=== PATIENT | female | born 1965 | race African-American/Black ===

== ENCOUNTER 2018-12-20 06:51 | Outpatient (CLI) | payer BC ==
[2018-12-20 14:36] LABS: Hemoglobin 11.6 g/dL (12.0-16.0); Mean Corpuscular HGB CONC 31.1 g/dL (32.0-36.0); Mean Corpuscular Volume 80.3 fL (78.0-98.0); Platelet Count 224 thou/uL (130-400); RBC Distribution Width 16.5 % (11.5-14.5); Red Blood Cell (RBC) Count 4.62 mill/uL (4.20-5.40); White Blood Cell (WBC) Count 9.2 thou/uL (4.8-10.8)
[2018-12-20 14:56] LABS: Anion Gap 14 mmol/L (10-20); BUN (Urea Nitrogen) 15 mg/dL (9.8-20.1); Calc. Creatinine Clearance 0 mL/min (70-130); Calcium 9.3 mg/dL (7.8-10.44); Carbon Dioxide 28 mmol/L (22-29); Chloride 105 mmol/L (98-107); Estimated GFR-MDRD 87; Glucose 86 mg/dL (70-105); Potassium 3.5 mmol/L (3.5-5.1); Sodium 143 mmol/L (136-145)
--- NOTE | 2018-12-24 16:13 | EKG ---
Test Reason : Blood Pressure : / mmHG Vent. Rate : 065 BPM Atrial Rate : 065 BPM P-R Int : 138 ms QRS Dur : 088 ms QT Int : 408 ms P-R-T Axes : 046 050 007 degrees QTc Int : 424 ms Normal sinus rhythm Normal ECG When compared with ECG of 12-SEP-2018 23:55, Nonspecific T wave abnormality no longer evident in Anterolateral leads Confirmed by DR. Maranda FRANCE ([id number]) on 12/24/2018 4:12:30 PM Referred By: DAMON Confirmed By:DR. Maranda FRANCE
== END 2018-12-20 06:52 | disposition home or self-care (01) ==
LOC: LABBT 06:51
PROVIDERS: ATTEND Neurological Surgery
DX: Z01.818 Encounter for other preprocedural examination (principal); M54.12 Radiculopathy, cervical region
CPT/HCPCS: 80048; 85027; 93005; 93010

== ENCOUNTER 2018-12-25 06:04 | Day surgery (SDC) | payer BC ==
[2018-12-20 13:23] VITALS: BMI 38.9
[2018-12-25] MEDS ORDERED: Sodium Chloride 0.9% 10 ML ONE (06:50)
[2018-12-25] MEDS ORDERED: Clindamycin/D5W 900 mg/50 ml Premix Bag ONE (06:57)
[2018-12-25] MEDS ORDERED: Levofloxacin 500 mg/D5W 100 ml Premix Bag ONE (06:57)
[2018-12-25] MEDS ORDERED: Fentanyl 100 MCG/2 ML VIAL ONE ×2 (07:57→09:39)
[2018-12-25] MEDS ORDERED: SUGAMMADEX SODIUM 500 MG/5 ML VIAL ONE (09:00)
[2018-12-25] MEDS ORDERED: Promethazine HCl 25 MG/ML VIAL ONE (09:41)
--- NOTE | 2018-12-25 10:01 | OP ---
DATE OF PROCEDURE: 12/25/2018 HAND IRONER: Mathew Chamorro PA-C PROCEDURES PERFORMED: Anterior cervical diskectomy C6-C7, interbody arthrodesis, intervertebral biomechanical device, local morselized autograft, demineralized bone matrix, and anterior titanium instrumentation C6-C7. DESCRIPTION OF PROCEDURE: The patient was brought to the operating room and intubated. She was positioned supine with head in modest extension on gel-filled donut. A longitudinal incision was made in the right precervical area and dissected medial to the sternocleidomastoid muscle, identified the anterior cervical spinal, and the level was confirmed by x-ray. We placed distraction across the disk space and using the operative microscope and microdissection techniques, completely removed the C6-C7 disk decompressing the neural elements from foramen to foramen. Bony endplates were then decorticated for the purpose of arthrodesis and appropriate-sized intervertebral biomechanical PEEK device was brought into the field, filled with demineralized bone matrix and local morselized autograft, and tapped in place securely at C6-C7. Next, an anterior plate was brought into the field and secured to C6 and C7 using two 14 mm screws at each level. The wound was extensively irrigated. MAC hemostasis was secured and the wound was closed in anatomic layers. Job ID: [id number]
[2018-12-25] MEDS ORDERED: Rocuronium Bromide 10 MG/ML (10ML VIAL) ONE (10:45)
[2018-12-25] MEDS ORDERED: Dexamethasone 20 MG/5 ML VIAL ONE (10:45)
[2018-12-25] MEDS ORDERED: Ondansetron PF 4 MG/2 ML Vial ONE (10:45)
[2018-12-25] MEDS ORDERED: PHENYLEPHRINE-NS 100 MCG/ML 10 ML SYRINGE ONE (10:45)
[2018-12-25] MEDS ORDERED: Lidocaine 1% PF 5 ML VIAL ONE (10:45)
[2018-12-25] MEDS ORDERED: PROPOFOL 200 MG/20 ML VIAL ONE (10:45)
[2018-12-25] MEDS ORDERED: HYDROcodone/Acetaminophen 5/325 mg Tablet ONE (11:52)
== END 2018-12-25 15:20 | disposition home or self-care (01) ==
LOC: SDC 06:04
PROVIDERS: ATTEND Neurological Surgery
PROC: 0RG10A0 Fusion of Cervical Vertebral Joint with Interbody Fusion Device, Anterior Approach, Anterior Column, Open Approach (ICD-10-PCS; principal; 2018-12-25)
PROC: 0RT30ZZ Resection of Cervical Vertebral Disc, Open Approach (ICD-10-PCS; principal; 2018-12-25)
DX: M54.12 Radiculopathy, cervical region (principal); F41.9 Anxiety disorder, unspecified; M19.90 Unspecified osteoarthritis, unspecified site; Z79.899 Other long term (current) drug therapy; Z88.0 Allergy status to penicillin
CPT/HCPCS: 76000; C1713; C1776; J0131; J1100; J1956; J2001; J2405; J2550; J2704; J3010; J3490

== ENCOUNTER 2019-01-11 15:45 | Outpatient (CLI) | payer BC ==
--- NOTE | 2019-01-11 16:19 | RAD ---
EXAM: CERVICAL SPINE THREE VIEWS: 01/11/19 HISTORY: Cervical radiculopathy, follow-up surgery. FINDINGS: Anterior cervical fusion changes at C6-C7. No significant prevertebral soft tissue swelling. The tip of the odontoid and upper C1 are partially obscured on the AP open mouth view. IMPRESSION: Anterior cervical fusion changes at C6-C7. POS: TPC
== END 2019-01-11 15:46 | disposition home or self-care (01) ==
LOC: TBSIIMAG 15:45
PROVIDERS: ATTEND Neurological Surgery
DX: M54.12 Radiculopathy, cervical region (principal); Z98.1 Arthrodesis status
CPT/HCPCS: 72040

== ENCOUNTER 2019-02-14 12:37 | Outpatient (CLI) | payer BC ==
--- NOTE | 2019-02-14 13:54 | RAD ---
STANDARD CERVICAL SPINE AP AND LATERAL: HISTORY: M50.20, cervical pain. COMPARISON: Radiograph from 01/11/2019. FINDINGS: There is a normal appearance of the C1-C2 articulation on the open-mouth odontoid view. C6-C7 diskect diallo change with ACDF hardware without hardware complication. IMPRESSION: No acute osseous abnormality. POS: CET
== END 2019-02-14 12:38 | disposition home or self-care (01) ==
LOC: TBSIIMAG 12:37
PROVIDERS: ATTEND Neurological Surgery
DX: M50.20 Other cervical disc displacement, unspecified cervical region (principal)
CPT/HCPCS: 72040

== ENCOUNTER 2019-06-24 16:30 | Emergency (ER) | payer BC, OTHER ==
[2019-06-25 09:59] LABS: SARS-CoV-2 MS2 Positive; SARS-CoV-2 N Gene Negative; SARS-CoV-2 S Gene Negative; SARS-CoV-2 orf1ab Negative
== END 2019-06-24 18:02 | disposition home or self-care (01) ==
LOC: ERS 16:30
DX: R50.9 Fever, unspecified (principal); R05 Cough; Z20.828 Contact with and (suspected) exposure to other viral communicable diseases; F41.9 Anxiety disorder, unspecified; I10 Essential (primary) hypertension; J45.909 Unspecified asthma, uncomplicated
CPT/HCPCS: 87081; 87430; 87635; 99283; U0003

== ENCOUNTER 2020-04-01 22:00 | Emergency (ER) | payer BC ==
[2020-04-01] MEDS ORDERED: Famotidine 20 MG TAB ONE (22:37)
[2020-04-01] MEDS ORDERED: predniSONE 20 MG TAB ONE (22:37)
[2020-04-01] MEDS ORDERED: HYDROcodone/Acetaminophen 10/325 mg Tablet ONE (22:37)
[2020-04-01] MEDS ORDERED: diphenhydrAMINE 25 MG CAP ONE (22:39)
--- NOTE | 2020-04-01 23:01 | RAD ---
XR Lumbar Spine 2 Or 3 View: 04/01/2020 10:35 PM INDICATION: Fall with back injury COMPARISON: None FINDINGS: Fracture: None. Alignment: Spinal alignment appears within normal limits. Degenerative Change: No appreciable. Bone Mineralization:Normal Soft tissues: No acute abnormality. IMPRESSION: Normal lumbar radiographs.
== END 2020-04-01 23:57 | disposition home or self-care (01) ==
LOC: EEVIPCON 22:00 → ERS 22:00
DX: S39.012A Strain of muscle, fascia and tendon of lower back, initial encounter (principal); T78.40XA Allergy, unspecified, initial encounter; I10 Essential (primary) hypertension; W00.0XXA Fall on same level due to ice and snow, initial encounter
CPT/HCPCS: 72100; J7512; Q0163

== ENCOUNTER 2021-06-04 12:21 | Emergency (ER) | payer BC ==
[2021-06-04] MEDS ORDERED: Nitroglycerin 2% Ointment 1 INCH/1 GM Packet ONE (12:54)
[2021-06-04] MEDS ORDERED: Aspirin Chewable 81 MG TAB ONE (12:55)
[2021-06-04 13:24] LABS: #Eosinphils 0.1 thou/uL (0.0-0.7); #Lymphocytes 1.3 thou/uL (1.20-3.40); #Monocytes 0.6 thou/uL (0.11-0.59); #Neutrophils 7.1 thou/uL (1.40-6.50); %Basophils 0.2 % (0.0-1.0); %Eosinophils 0.6 % (0.0-10.0); %Lymphocytes 13.8 % (21.0-51.0); %Neutrophils 78.5 % (42.0-75.0); Hemoglobin 14.1 g/dL (12.0-16.0); Mean Corpuscular HGB CONC 32.2 g/dL (32.0-36.0); Mean Corpuscular Hemoglobin 32.5 pg (27.0-31.0); Mean Platelet Volume 7.7 fL (7.4-10.4); Platelet Count 193 thou/uL (130-400); RBC Distribution Width 11.8 % (11.5-14.5); Red Blood Cell (RBC) Count 4.33 mill/uL (4.20-5.40); White Blood Cell (WBC) Count 9.1 thou/uL (4.8-10.8)
[2021-06-04 13:50] LABS: ALT (SGPT) 23 U/L (8-55); AST (SGOT) 28 U/L (5-34); Albumin 3.6 g/dL (3.5-5.0); Alkaline Phosphatase 77 U/L (40-110); Anion Gap 12 mmol/L (10-20); BUN (Urea Nitrogen) 20 mg/dL (9.8-20.1); Bilirubin, Total 0.3 mg/dL (0.2-1.2); Calc. Creatinine Clearance 0 mL/min (70-130); Calcium 9.4 mg/dL (7.8-10.44); Carbon Dioxide 26 mmol/L (22-29); Chloride 104 mmol/L (98-107); Globulin 3.7 g/dL (2.4-3.5); Glucose 86 mg/dL (70-105); Lipase 103 U/L (8-78); Potassium 3.7 mmol/L (3.5-5.1); Protein, Total 7.3 g/dL (6.0-8.3); Sodium 138 mmol/L (136-145)
== END 2021-06-04 17:25 | disposition home or self-care (01) ==
LOC: ERS 12:21
DX: R07.89 Other chest pain (principal); I10 Essential (primary) hypertension
CPT/HCPCS: 36415; 71045; 71275; 80053; 83690; 83880; 84484; 85025; 85379; 93005

== ENCOUNTER 2021-11-28 16:32 | Emergency (ER) | payer BC ==
[2021-11-28] MEDS ORDERED: Ketorolac Tromethamine 30 MG/ML VIAL ONE (17:57)
[2021-11-28] MEDS ORDERED: Cyclobenzaprine 10 MG TAB ONE (17:57)
== END 2021-11-28 18:25 | disposition home or self-care (01) ==
LOC: ERS 16:32
DX: M54.41 Lumbago with sciatica, right side (principal); I10 Essential (primary) hypertension; Z79.899 Other long term (current) drug therapy
CPT/HCPCS: 93005; 96372; J1885

== ENCOUNTER 2021-11-30 12:38 | Inpatient (IN) | payer BC ==
[2021-11-30] MEDS ORDERED: Ketorolac Tromethamine 30 MG/ML VIAL ONE (13:47)
[2021-11-30] MEDS ORDERED: FENTANYL 50 MCG/ML VIAL 50 MCG/ML VIAL ONE (13:47)
[2021-11-30] MEDS ORDERED: Lorazepam 2 MG/ML VIAL ONE (13:49)
[2021-11-30 14:08] LABS: #Lymphocytes 0.7 thou/uL (1.20-3.40); #Monocytes 0.2 thou/uL (0.11-0.59); #Neutrophils 10.3 thou/uL (1.40-6.50); %Basophils 0.1 % (0.0-1.0); %Eosinophils 0.1 % (0.0-10.0); %Lymphocytes 6.3 % (21.0-51.0); %Neutrophils 91.5 % (42.0-75.0); Hemoglobin 14.2 g/dL (12.0-16.0); Mean Corpuscular HGB CONC 31.5 g/dL (32.0-36.0); Mean Corpuscular Hemoglobin 31.5 pg (27.0-31.0); Mean Corpuscular Volume 99.7 fL (78.0-98.0); Mean Platelet Volume 8.5 fL (7.4-10.4); Platelet Count 189 thou/uL (130-400); Red Blood Cell (RBC) Count 4.51 mill/uL (4.20-5.40); White Blood Cell (WBC) Count 11.3 thou/uL (4.8-10.8)
[2021-11-30 14:18] LABS: PTT 26.4 sec (22.9-36.1); Prothrombin Time 13.7 sec (12.0-14.7)
[2021-11-30 14:27] LABS: ALT (SGPT) 32 U/L (8-55); AST (SGOT) 25 U/L (5-34); Albumin 3.7 g/dL (3.5-5.0); Alkaline Phosphatase 86 U/L (40-110); Anion Gap 12 mmol/L (10-20); BUN (Urea Nitrogen) 24 mg/dL (9.8-20.1); Bilirubin, Total 0.4 mg/dL (0.2-1.2); CK (CPK) 118 U/L (29-168); Calc. Creatinine Clearance 0 mL/min (70-130); Calcium 9.6 mg/dL (7.8-10.44); Carbon Dioxide 26 mmol/L (22-29); Chloride 105 mmol/L (98-107); Estimated GFR 81; Globulin 3.9 g/dL (2.4-3.5); Glucose 111 mg/dL (70-105); Potassium 4.1 mmol/L (3.5-5.1); Protein, Total 7.6 g/dL (6.0-8.3); Sodium 139 mmol/L (136-145)
[2021-11-30] MEDS ORDERED: Morphine 4 MG/ML VIAL ONE (15:48)
[2021-11-30 17:20] LABS: Bilirubin Negative (Negative); Blood, Urine Negative (Negative); Clarity Clear (Clear); Glucose, Urine (Dipstick) Normal (Negative); Ketone, Urine Negative (Negative); Leukocyte Negative Leu/uL (Negative); Nitrite Negative (Negative); Protein, Urine (Dipstick) Negative (Neg-Trace); Specific Gravity, Urine 1.019 (1.002-1.036); Urobilinogen Normal mg/dL (Less than 2)
[2021-11-30] MEDS ORDERED: Ondansetron ODT 4 MG TAB PO PRN (17:38)
[2021-11-30] MEDS ORDERED: Acetaminophen 325 MG TAB PO PRN (17:38)
[2021-11-30] MEDS ORDERED: Ondansetron PF 4 MG/2 ML Vial IVP PRN (17:38)
[2021-11-30] MEDS: Morphine 4 MG/ML VIAL SLOW IVP PRN (20:32)
[2021-11-30] MEDS: Cyclobenzaprine 10 MG TAB PO PRN (20:32)
[2021-11-30] MEDS: Famotidine 20 MG TAB PO SCH (20:32)
[2021-11-30] MEDS: Sodium Chloride 0.9% 1,000 ML IV SCH (20:49)
[2021-11-30 21:10] VITALS: BMI 36.8
[2021-11-30 22:11] LABS: SARS-CoV-2 NAA Rapid Test Not Detected (NotDetected)
[2021-12-01] MEDS: Ketorolac Tromethamine 30 MG/ML VIAL IVP PRN ×2 (00:34→11:25)
[2021-12-01] MEDS: Morphine 4 MG/ML VIAL SLOW IVP PRN ×3 (01:20→15:21)
[2021-12-01 06:40] LABS: #Eosinphils 0.1 thou/uL (0.0-0.7); #Lymphocytes 1.3 thou/uL (1.20-3.40); #Monocytes 0.7 thou/uL (0.11-0.59); #Neutrophils 5.6 thou/uL (1.40-6.50); %Basophils 0.1 % (0.0-1.0); %Lymphocytes 17.1 % (21.0-51.0); %Monocytes 9.2 % (0.0-10.0); %Neutrophils 72.6 % (42.0-75.0); Hemoglobin 12.9 g/dL (12.0-16.0); Mean Corpuscular HGB CONC 31.5 g/dL (32.0-36.0); Mean Corpuscular Hemoglobin 32.3 pg (27.0-31.0); Mean Platelet Volume 8.4 fL (7.4-10.4); Platelet Count 173 thou/uL (130-400); RBC Distribution Width 12.1 % (11.5-14.5); Red Blood Cell (RBC) Count 3.98 mill/uL (4.20-5.40); White Blood Cell (WBC) Count 7.8 thou/uL (4.8-10.8)
[2021-12-01] MEDS ORDERED: Dexamethasone 4 mg/ml Vial SLOW IVP SCH (06:45)
[2021-12-01 06:56] LABS: Anion Gap 7 mmol/L (10-20); BUN (Urea Nitrogen) 25 mg/dL (9.8-20.1); Calc. Creatinine Clearance 139 mL/min (70-130); Calcium 8.7 mg/dL (7.8-10.44); Carbon Dioxide 30 mmol/L (22-29); Chloride 108 mmol/L (98-107); Estimated GFR 93; Glucose 90 mg/dL (70-105); Potassium 4.3 mmol/L (3.5-5.1); Sodium 141 mmol/L (136-145)
[2021-12-01] MEDS: Polyethylene Glycol 3350 17 GM Packet PO SCH (08:25)
[2021-12-01] MEDS: Sodium Chloride 0.9% 1,000 ML IV SCH (08:26)
[2021-12-01] MEDS: Famotidine 20 MG TAB PO SCH ×2 (08:26→20:03)
[2021-12-01] MEDS ORDERED: FLU VACC QS2022-23(6MOS UP)/PF 60 MCG/0.5 ML SYRINGE IM ONE (09:00)
[2021-12-01] MEDS ORDERED: methylPREDNISolone Sod Succ 40 MG VIAL IVP SCH (09:00)
[2021-12-01] MEDS: Dexamethasone 4 mg/ml Vial SLOW IVP SCH ×2 (11:26→18:16)
[2021-12-01] MEDS: Senokot S 8.6-50 MG TAB PO PRN (20:00)
[2021-12-01] MEDS: HYDROcodone/Acetaminophen 5/325 mg Tablet PO PRN (20:01)
[2021-12-01] MEDS: Cyclobenzaprine 10 MG TAB PO PRN (20:03)
[2021-12-02] MEDS: Dexamethasone 4 mg/ml Vial SLOW IVP SCH ×2 (00:06→05:42)
[2021-12-02] MEDS: Ketorolac Tromethamine 30 MG/ML VIAL IVP PRN ×2 (00:06→19:17)
[2021-12-02] MEDS: HYDROcodone/Acetaminophen 5/325 mg Tablet PO PRN ×4 (05:42→22:41)
[2021-12-02 06:02] LABS: #Lymphocytes 0.6 thou/uL (1.20-3.40); #Monocytes 0.2 thou/uL (0.11-0.59); %Basophils 0.2 % (0.0-1.0); %Eosinophils 0.2 % (0.0-10.0); %Lymphocytes 6.1 % (21.0-51.0); %Monocytes 2.1 % (0.0-10.0); %Neutrophils 91.5 % (42.0-75.0); Hemoglobin 13.8 g/dL (12.0-16.0); Mean Corpuscular HGB CONC 31.3 g/dL (32.0-36.0); Mean Corpuscular Hemoglobin 31.6 pg (27.0-31.0); Mean Platelet Volume 8.4 fL (7.4-10.4); Platelet Count 143 thou/uL (130-400); RBC Distribution Width 11.8 % (11.5-14.5); Red Blood Cell (RBC) Count 4.37 mill/uL (4.20-5.40); White Blood Cell (WBC) Count 9.9 thou/uL (4.8-10.8)
[2021-12-02 06:53] LABS: Anion Gap 13 mmol/L (10-20); BUN (Urea Nitrogen) 20 mg/dL (9.8-20.1); Calc. Creatinine Clearance 145 mL/min (70-130); Calcium 8.9 mg/dL (7.8-10.44); Carbon Dioxide 21 mmol/L (22-29); Chloride 109 mmol/L (98-107); Estimated GFR 97; Glucose 120 mg/dL (70-105); Potassium 4.6 mmol/L (3.5-5.1); Sodium 138 mmol/L (136-145)
[2021-12-02] MEDS: Estradiol 1 MG TAB PO SCH (08:51)
[2021-12-02] MEDS: busPIRone HCl 10 MG TAB PO PRN (08:51)
[2021-12-02] MEDS: Cholecalciferol 1,000 UNITS (25 MCG) TAB PO SCH (08:51)
[2021-12-02] MEDS: Polyethylene Glycol 3350 17 GM Packet PO SCH (08:52)
[2021-12-02] MEDS: Hydrochlorothiazide 25 MG TAB PO SCH (08:52)
[2021-12-02] MEDS: Fish Oil 1,000 MG CAP PO SCH (08:52)
[2021-12-02] MEDS: Senokot S 8.6-50 MG TAB PO PRN (08:52)
[2021-12-02] MEDS: Multivit, Therapeutic 1 TAB PO SCH (08:52)
[2021-12-02] MEDS: Famotidine 20 MG TAB PO SCH ×2 (08:52→19:23)
[2021-12-02] MEDS ORDERED: Lidocaine 1% PF 5 ML VIAL ONE (11:40)
[2021-12-02] MEDS ORDERED: Bupivacaine 0.25% 10 ML VIAL ONE (11:40)
[2021-12-02] MEDS ORDERED: Iopamidol-M 300 61% 15 ML VIAL ONE (11:40)
[2021-12-02] MEDS ORDERED: Sodium Chloride 0.9% (PF) 10 ML VIAL ONE (11:40)
[2021-12-02] MEDS: Cyclobenzaprine 10 MG TAB PO PRN (19:23)
[2021-12-03] MEDS: Cyclobenzaprine 10 MG TAB PO PRN (06:12)
[2021-12-03] MEDS: HYDROcodone/Acetaminophen 5/325 mg Tablet PO PRN ×3 (06:12→18:05)
[2021-12-03] MEDS: Fish Oil 1,000 MG CAP PO SCH (08:35)
[2021-12-03] MEDS: Cholecalciferol 1,000 UNITS (25 MCG) TAB PO SCH (08:35)
[2021-12-03] MEDS: Morphine 4 MG/ML VIAL SLOW IVP PRN ×3 (08:35→20:28)
[2021-12-03] MEDS: Hydrochlorothiazide 25 MG TAB PO SCH (08:36)
[2021-12-03] MEDS: Multivit, Therapeutic 1 TAB PO SCH (08:36)
[2021-12-03] MEDS: Baclofen 10 MG TAB PO SCH ×3 (08:36→20:27)
[2021-12-03] MEDS: busPIRone HCl 10 MG TAB PO PRN (08:36)
[2021-12-03] MEDS: Famotidine 20 MG TAB PO SCH ×2 (08:36→20:27)
[2021-12-03] MEDS: Estradiol 1 MG TAB PO SCH (08:36)
[2021-12-03] MEDS: Polyethylene Glycol 3350 17 GM Packet PO SCH (09:24)
[2021-12-03] MEDS: Senokot S 8.6-50 MG TAB PO PRN ×2 (09:28→20:27)
[2021-12-03] MEDS: Ketorolac Tromethamine 30 MG/ML VIAL IVP PRN ×2 (11:40→18:05)
[2021-12-04] MEDS: Ketorolac Tromethamine 30 MG/ML VIAL IVP PRN ×3 (06:12→22:18)
[2021-12-04] MEDS: HYDROcodone/Acetaminophen 5/325 mg Tablet PO PRN ×4 (06:25→22:17)
[2021-12-04] MEDS: Multivit, Therapeutic 1 TAB PO SCH (08:31)
[2021-12-04] MEDS: Fish Oil 1,000 MG CAP PO SCH (08:31)
[2021-12-04] MEDS: busPIRone HCl 10 MG TAB PO PRN (08:31)
[2021-12-04] MEDS: Famotidine 20 MG TAB PO SCH ×2 (08:31→20:43)
[2021-12-04] MEDS: Hydrochlorothiazide 25 MG TAB PO SCH (08:31)
[2021-12-04] MEDS: Senokot S 8.6-50 MG TAB PO PRN (08:31)
[2021-12-04] MEDS: Cholecalciferol 1,000 UNITS (25 MCG) TAB PO SCH (08:32)
[2021-12-04] MEDS: Polyethylene Glycol 3350 17 GM Packet PO SCH (08:32)
[2021-12-04] MEDS: Baclofen 10 MG TAB PO SCH ×3 (08:32→20:43)
[2021-12-04] MEDS: Morphine 4 MG/ML VIAL SLOW IVP PRN ×2 (10:41→20:43)
[2021-12-04] MEDS: Estradiol 1 MG TAB PO SCH (10:42)
[2021-12-05] MEDS: HYDROcodone/Acetaminophen 5/325 mg Tablet PO PRN (05:31)
[2021-12-05] MEDS: Ketorolac Tromethamine 30 MG/ML VIAL IVP PRN (05:32)
[2021-12-05] MEDS: Morphine 4 MG/ML VIAL SLOW IVP PRN ×2 (08:44→17:08)
[2021-12-05] MEDS: Estradiol 1 MG TAB PO SCH (08:47)
[2021-12-05] MEDS: Polyethylene Glycol 3350 17 GM Packet PO SCH (08:47)
[2021-12-05] MEDS: Hydrochlorothiazide 25 MG TAB PO SCH (08:47)
[2021-12-05] MEDS: Fish Oil 1,000 MG CAP PO SCH (08:47)
[2021-12-05] MEDS: Famotidine 20 MG TAB PO SCH (08:48)
[2021-12-05] MEDS: Cholecalciferol 1,000 UNITS (25 MCG) TAB PO SCH (08:48)
[2021-12-05] MEDS: Baclofen 10 MG TAB PO SCH ×3 (08:48→20:01)
[2021-12-05] MEDS: Multivit, Therapeutic 1 TAB PO SCH (08:48)
[2021-12-05] MEDS ORDERED: Enoxaparin Sodium 40 MG/0.4 ML SYRINGE SC SCH (10:45)
[2021-12-05] MEDS: HYDROcodone/Acetaminophen 10/325 mg Tablet PO PRN ×2 (11:06→15:57)
[2021-12-05] MEDS: traMADol HCl 50 MG TAB PO PRN ×2 (14:37→19:58)
[2021-12-05] MEDS: Senokot S 8.6-50 MG TAB PO PRN (15:58)
[2021-12-05] MEDS: Meloxicam 7.5 MG TAB PO SCH (20:29)
[2021-12-06] MEDS: Morphine 4 MG/ML VIAL SLOW IVP PRN (04:23)
[2021-12-06] MEDS: Fish Oil 1,000 MG CAP PO SCH (08:32)
[2021-12-06] MEDS: Polyethylene Glycol 3350 17 GM Packet PO SCH (08:32)
[2021-12-06] MEDS: Estradiol 1 MG TAB PO SCH (08:32)
[2021-12-06] MEDS: Enoxaparin Sodium 40 MG/0.4 ML SYRINGE SC SCH ×2 (08:32→08:38)
[2021-12-06] MEDS: Hydrochlorothiazide 25 MG TAB PO SCH (08:33)
[2021-12-06] MEDS: Meloxicam 7.5 MG TAB PO SCH ×2 (08:33→20:37)
[2021-12-06] MEDS: Cholecalciferol 1,000 UNITS (25 MCG) TAB PO SCH (08:33)
[2021-12-06] MEDS: Multivit, Therapeutic 1 TAB PO SCH (08:33)
[2021-12-06] MEDS: Baclofen 10 MG TAB PO SCH ×3 (08:33→20:36)
[2021-12-06] MEDS: Lidocaine 5% Patch TD SCH (09:15)
[2021-12-06] MEDS: HYDROcodone/Acetaminophen 10/325 mg Tablet PO PRN (11:22)
[2021-12-06] MEDS: traMADol HCl 50 MG TAB PO PRN ×2 (12:46→20:36)
[2021-12-06] MEDS ORDERED: Transdermal Patch Removal TOP SCH (21:00)
[2021-12-07] MEDS: Meloxicam 7.5 MG TAB PO SCH (08:09)
[2021-12-07] MEDS: Multivit, Therapeutic 1 TAB PO SCH (08:10)
[2021-12-07] MEDS: Cholecalciferol 1,000 UNITS (25 MCG) TAB PO SCH (08:10)
[2021-12-07] MEDS: HYDROcodone/Acetaminophen 10/325 mg Tablet PO PRN (08:10)
[2021-12-07] MEDS: Fish Oil 1,000 MG CAP PO SCH (08:10)
[2021-12-07] MEDS: Hydrochlorothiazide 25 MG TAB PO SCH (08:10)
[2021-12-07] MEDS: Estradiol 1 MG TAB PO SCH (08:11)
[2021-12-07] MEDS: Enoxaparin Sodium 40 MG/0.4 ML SYRINGE SC SCH (08:11)
[2021-12-07] MEDS: Baclofen 10 MG TAB PO SCH (08:11)
[2021-12-07] MEDS: Polyethylene Glycol 3350 17 GM Packet PO SCH (08:11)
[2021-12-07 08:29] VITALS: BP 127/84; TEMP 98.7
[2021-12-07] MEDS: Lidocaine 5% Patch TD SCH (10:03)
[2021-12-07] MEDS: traMADol HCl 50 MG TAB PO PRN (10:18)
== END 2021-12-07 10:53 | disposition home or self-care (01) | DRG 552 ==
LOC: ERS 12:38 → T4-B 17:22 → OBSVTOIN 12-02 12:15
PROVIDERS: ADMIT Internal Medicine; ATTEND Internal Medicine
PROC: 3E0R33Z Introduction of Anti-inflammatory into Spinal Canal, Percutaneous Approach (ICD-10-PCS; principal; 2021-12-02)
PROC: 3E0R3BZ Introduction of Anesthetic Agent into Spinal Canal, Percutaneous Approach (ICD-10-PCS; 2021-12-02)
DX: M48.07 Spinal stenosis, lumbosacral region (principal); G83.4 Cauda equina syndrome; M54.17 Radiculopathy, lumbosacral region; F41.9 Anxiety disorder, unspecified; I10 Essential (primary) hypertension; E66.01 Morbid (severe) obesity due to excess calories; D72.829 Elevated white blood cell count, unspecified; Z68.36 Body mass index [BMI] 36.0-36.9, adult; Z88.0 Allergy status to penicillin; Z79.899 Other long term (current) drug therapy; Z98.890 Other specified postprocedural states; Z90.49 Acquired absence of other specified parts of digestive tract; Z82.49 Family history of ischemic heart disease and other diseases of the circulatory system
CPT/HCPCS: 36415; 51702; 72148; 80048; 80053; 81003; 82550; 85025; 85610; 85730; 96374; 96375; 96376; G0378; J1040; J1100; J1650; J1885; J2060; J2270; J3010; J7050; Q9967; S0020; U0002

== ENCOUNTER 2021-12-25 13:18 | Emergency (ER) | payer BC ==
[2021-12-25] MEDS ORDERED: Diazepam 5 MG TAB ONE (16:46)
[2021-12-25] MEDS ORDERED: Morphine 4 MG/ML VIAL ONE ×2 (16:46→18:44)
[2021-12-25 18:32] LABS: Bilirubin Negative (Negative); Blood, Urine Negative (Negative); Clarity Clear (Clear); Glucose, Urine (Dipstick) Normal (Negative); Ketone, Urine Negative (Negative); Leukocyte Negative Leu/uL (Negative); Nitrite Negative (Negative); Protein, Urine (Dipstick) Negative (Neg-Trace); Specific Gravity, Urine 1.007 (1.002-1.036); Urobilinogen Normal mg/dL (Less than 2); pH, Urine 6.5 (5.0-9.0)
== END 2021-12-25 20:21 | disposition home or self-care (01) ==
LOC: ERS 13:18
DX: M54.41 Lumbago with sciatica, right side (principal); I10 Essential (primary) hypertension; J45.909 Unspecified asthma, uncomplicated
CPT/HCPCS: 81003; 96372; 99284; J2270

== ENCOUNTER 2022-01-25 10:30 | Outpatient (CLI) | payer BC | END 2022-01-25 10:31 | disposition home or self-care (01) | LOC: TBSIIMAG 10:30 | PROVIDERS: ATTEND Neurological Surgery | DX: M47.26 Other spondylosis with radiculopathy, lumbar region (principal) | CPT/HCPCS: 72148 ==

== ENCOUNTER 2022-02-15 11:26 | Outpatient (CLI) | payer BC ==
[2022-02-15 12:49] LABS: Hemoglobin 13.8 g/dL (12.0-15.5); Mean Corpuscular HGB CONC 32.5 g/dL (32.0-36.0); Mean Corpuscular Hemoglobin 31.3 pg (27.0-33.0); Mean Corpuscular Volume 96.1 fl (81.6-98.3); Mean Platelet Volume 10.2 fl (7.4-10.4); Platelet Count 195 10x3/uL (150-450); RBC Distribution Width 13.3 % (11.5-14.5); Red Blood Cell (RBC) Count 4.41 10x6/uL (3.90-5.03); White Blood Cell (WBC) Count 8.2 10x3/uL (3.5-10.5)
[2022-02-15 13:09] LABS: Anion Gap 11 mmol/L (10-20); BUN (Urea Nitrogen) 22 mg/dL (9.8-20.1); Calc. Creatinine Clearance 0 mL/min (70-130); Calcium 9.4 mg/dL (7.8-10.44); Carbon Dioxide 27 mmol/L (22-29); Chloride 108 mmol/L (98-107); Estimated GFR 91; Glucose 92 mg/dL (70-105); Potassium 3.6 mmol/L (3.5-5.1); Sodium 142 mmol/L (136-145)
== END 2022-02-15 11:27 | disposition home or self-care (01) ==
LOC: LABBT 11:26
PROVIDERS: ATTEND Neurological Surgery
DX: Z01.818 Encounter for other preprocedural examination (principal); M54.16 Radiculopathy, lumbar region
CPT/HCPCS: 80048; 85027; 93005; 93010

== ENCOUNTER 2022-02-22 09:06 | Observation (INO) | payer BC ==
[2022-02-19 11:04] VITALS: BMI 39.6
[2022-02-22] MEDS ORDERED: Midazolam HCl 2 mg/2 ml Vial ONE (12:57)
[2022-02-22] MEDS ORDERED: Levofloxacin 500 mg/D5W 100 ml Premix Bag ONE (13:16)
[2022-02-22] MEDS ORDERED: HYDROmorphone 0.5 MG/0.5 ML SYRINGE ONE ×5 (13:40→17:09)
[2022-02-22] MEDS ORDERED: fentaNYL PF 100 MCG/2 ML SYRINGE ONE (13:40)
[2022-02-22] MEDS ORDERED: Clindamycin/D5W 900 mg/50 ml Premix Bag ONE ×2 (13:43→21:59)
[2022-02-22] MEDS ORDERED: Lidocaine 1% PF 5 ML VIAL ONE (13:55)
[2022-02-22] MEDS ORDERED: Ondansetron PF 4 MG/2 ML Vial ONE (13:55)
[2022-02-22] MEDS ORDERED: Dexamethasone 20 MG/5 ML VIAL ONE (13:55)
[2022-02-22] MEDS ORDERED: PROPOFOL 200 MG/20 ML VIAL ONE (13:55)
[2022-02-22] MEDS ORDERED: Rocuronium Bromide 10 MG/ML (10ML VIAL) ONE (13:55)
[2022-02-22 14:13] LABS: SARS-CoV-2 NAA Rapid Test Not Detected (NotDetected)
[2022-02-22] MEDS ORDERED: Vancomycin 1 GM VIAL ONE (14:47)
[2022-02-22] MEDS ORDERED: traMADol HCl 50 MG TAB PO PRN (15:09)
[2022-02-22] MEDS ORDERED: Cyclobenzaprine 10 MG TAB PO PRN (15:09)
[2022-02-22] MEDS ORDERED: Promethazine 25 MG TAB PO PRN (15:09)
[2022-02-22] MEDS ORDERED: Milk Of Magnesia 30 ML UDCUP PO PRN (15:09)
[2022-02-22] MEDS ORDERED: Mag-Al 1200 mg/1200 mg/30 ML UDCUP PO PRN (15:09)
[2022-02-22] MEDS ORDERED: Morphine 2 MG/ML VIAL SLOW IVP PRN (15:09)
[2022-02-22] MEDS ORDERED: diphenhydrAMINE 25 MG CAP PO PRN (15:09)
[2022-02-22] MEDS ORDERED: Acetaminophen 325 MG TAB PO PRN (15:09)
[2022-02-22] MEDS ORDERED: Ondansetron PF 4 MG/2 ML Vial IVP PRN (15:09)
[2022-02-22] MEDS ORDERED: HYDROcodone/Acetaminophen 7.5/325 mg Tablet PO PRN (15:09)
[2022-02-22] MEDS ORDERED: Ondansetron HCl/PF 4 MG/2 ML Vial IVP PRN (16:00)
[2022-02-22] MEDS ORDERED: Promethazine HCl 25 MG/ML VIAL IM/IV PRN (16:00)
[2022-02-22] MEDS ORDERED: HYDROmorphone 2 MG/ML VIAL SLOW IVP PRN (16:00)
[2022-02-22] MEDS: Sodium Chloride 0.9% 1,000 ML IV SCH (19:35)
[2022-02-22] MEDS ORDERED: Gabapentin 300 MG CAP ONE (20:20)
[2022-02-22] MEDS ORDERED: HYDROcodone/Acetaminophen 7.5/325 mg Tablet ONE ×2 (20:21→23:58)
[2022-02-22] MEDS: HYDROcodone/Acetaminophen 7.5/325 mg Tablet PO PRN (20:25)
[2022-02-22] MEDS: Gabapentin 300 MG CAP PO SCH (20:30)
[2022-02-22] MEDS ORDERED: Senokot S 8.6-50 MG TAB ONE (22:00)
[2022-02-22] MEDS: Senokot S 8.6-50 MG TAB PO SCH (22:02)
[2022-02-22] MEDS: Clindamycin/D5W 900 MG in Premix Bag 1 BAG IVPB SCH (22:05)
[2022-02-23] MEDS: HYDROcodone/Acetaminophen 7.5/325 mg Tablet PO PRN ×4 (00:10→11:32)
[2022-02-23 01:09] VITALS: TEMP 97.5
[2022-02-23] MEDS ORDERED: Cyclobenzaprine 10 MG TAB ONE ×2 (02:15→08:05)
[2022-02-23] MEDS ORDERED: HYDROcodone/Acetaminophen 7.5/325 mg Tablet ONE ×3 (05:12→11:34)
[2022-02-23] MEDS ORDERED: Clindamycin/D5W 900 mg/50 ml Premix Bag ONE (05:13)
[2022-02-23] MEDS ORDERED: Clindamycin/D5W 600 mg/50 ml Premix Bag ONE (05:13)
[2022-02-23] MEDS: Sodium Chloride 0.9% 1,000 ML IV SCH (05:18)
[2022-02-23] MEDS: Clindamycin/D5W 900 MG in Premix Bag 1 BAG IVPB SCH (05:19)
[2022-02-23] MEDS ORDERED: Baclofen 10 MG TAB PO PRN (05:19)
[2022-02-23 05:22] VITALS: BP 138/74
[2022-02-23] MEDS: Senokot S 8.6-50 MG TAB PO SCH (08:46)
[2022-02-23] MEDS ORDERED: Gabapentin 300 MG CAP ONE (08:50)
[2022-02-23] MEDS: Gabapentin 300 MG CAP PO SCH (08:53)
[2022-02-23] MEDS ORDERED: busPIRone HCl 10 MG TAB PO SCH (09:00)
[2022-02-23] MEDS ORDERED: Hydrochlorothiazide 25 MG TAB PO SCH (09:00)
[2022-02-23] MEDS ORDERED: Losartan 25 MG TAB PO SCH (09:00)
== END 2022-02-23 12:20 | disposition home or self-care (01) ==
LOC: SDC 09:06 → PACU-TCU 02-23 01:39
PROVIDERS: ADMIT Neurological Surgery; ATTEND Neurological Surgery
PROC: 0SG30K1 Fusion of Lumbosacral Joint with Nonautologous Tissue Substitute, Posterior Approach, Posterior Column, Open Approach (ICD-10-PCS; principal; 2022-02-22)
DX: M54.16 Radiculopathy, lumbar region (principal); M51.27 Other intervertebral disc displacement, lumbosacral region; M47.817 Spondylosis without myelopathy or radiculopathy, lumbosacral region; Z79.899 Other long term (current) drug therapy; Z88.0 Allergy status to penicillin; Z88.8 Allergy status to other drugs, medicaments and biological substances; Z98.1 Arthrodesis status; Z20.822 Contact with and (suspected) exposure to COVID-19
CPT/HCPCS: C1713; J1100; J1170; J1956; J2250; J2405; J2704; J3370; J3490; J7050; U0002

== ENCOUNTER 2022-03-19 08:38 | Outpatient (CLI) | payer BC | END 2022-03-19 08:39 | disposition home or self-care (01) | LOC: TBSIIMAG 08:38 | PROVIDERS: ATTEND Neurological Surgery | DX: M54.16 Radiculopathy, lumbar region (principal) | CPT/HCPCS: 72100 ==

== ENCOUNTER 2022-08-16 14:24 | Outpatient (CLI) | payer BC | END 2022-08-16 14:25 | disposition home or self-care (01) | LOC: RAD 14:24 | PROVIDERS: ATTEND Neurological Surgery | DX: M54.50 Low back pain, unspecified (principal); M47.817 Spondylosis without myelopathy or radiculopathy, lumbosacral region | CPT/HCPCS: 72100 ==

== ENCOUNTER 2022-09-11 09:32 | Emergency (ER) | payer BC ==
[2022-09-11 10:03] LABS: #Monocytes 0.5 thou/uL (0.11-0.59); #Neutrophils 4.6 thou/uL (1.40-6.50); %Basophils 0.5 % (0.0-1.0); %Eosinophils 0.5 % (0.0-10.0); %Lymphocytes 15.8 % (21.0-51.0); %Monocytes 7.8 % (0.0-10.0); %Neutrophils 75.2 % (42.0-75.0); Hematocrit 35.3 % (36.0-47.0); Hemoglobin 10.7 g/dL (12.0-16.0); Mean Corpuscular HGB CONC 30.3 g/dL (32.0-36.0); Mean Corpuscular Hemoglobin 26.8 pg (27.0-31.0); Mean Corpuscular Volume 88.5 fl (78.0-98.0); Mean Platelet Volume 9.2 fL (7.4-10.4); Platelet Count 231 10x3/uL (130-400); RBC Distribution Width 15.1 % (11.5-14.5); Red Blood Cell (RBC) Count 3.99 mill/uL (4.20-5.40); White Blood Cell (WBC) Count 6.1 10x3/uL (4.8-10.8)
[2022-09-11 10:17] LABS: Prothrombin Time 13.4 sec (12.0-14.7)
[2022-09-11 10:18] LABS: PTT 24.4 sec (22.9-36.1)
[2022-09-11 10:26] LABS: ALT (SGPT) 31 U/L (8-55); AST (SGOT) 23 U/L (5-34); Albumin 3.6 g/dL (3.5-5.0); Alkaline Phosphatase 75 U/L (40-110); Anion Gap 12 mmol/L (10-20); BUN (Urea Nitrogen) 20 mg/dL (9.8-20.1); Bilirubin, Total 0.3 mg/dL (0.2-1.2); Calc. Creatinine Clearance 0 mL/min (70-130); Carbon Dioxide 25 mmol/L (22-29); Chloride 106 mmol/L (98-107); Estimated GFR 78; Globulin 3.6 g/dL (2.4-3.5); Glucose 100 mg/dL (70-105); Potassium 3.6 mmol/L (3.5-5.1); Protein, Total 7.2 g/dL (6.0-8.3); Sodium 139 mmol/L (136-145)
[2022-09-11] MEDS ORDERED: Iopamidol-370 76% 500 ML MDV (1 ML CHARGE) ONE (10:46)
[2022-09-11 13:14] LABS: #Monocytes 0.8 thou/uL (0.11-0.59); #Neutrophils 7.8 thou/uL (1.40-6.50); %Basophils 0.1 % (0.0-1.0); %Eosinophils 0.3 % (0.0-10.0); %Lymphocytes 13.2 % (21.0-51.0); %Monocytes 7.7 % (0.0-10.0); %Neutrophils 78.4 % (42.0-75.0); Hemoglobin 10.3 g/dL (12.0-16.0); Mean Corpuscular HGB CONC 31.2 g/dL (32.0-36.0); Mean Corpuscular Hemoglobin 27.6 pg (27.0-31.0); Mean Corpuscular Volume 88.5 fl (78.0-98.0); Mean Platelet Volume 9.3 fL (7.4-10.4); Platelet Count 210 10x3/uL (130-400); RBC Distribution Width 15.1 % (11.5-14.5); Red Blood Cell (RBC) Count 3.73 mill/uL (4.20-5.40); White Blood Cell (WBC) Count 9.9 10x3/uL (4.8-10.8)
== END 2022-09-11 14:26 | disposition home or self-care (01) ==
LOC: ERS 09:32
DX: K62.5 Hemorrhage of anus and rectum (principal); I10 Essential (primary) hypertension
CPT/HCPCS: 36415; 71045; 74177; 80053; 82274; 84484; 85025; 85610; 85730; 86850; 86900; 86901; 93005; Q9967

== ENCOUNTER 2023-01-13 08:13 | Outpatient (CLI) | payer BC ==
[2023-01-13] MEDS ORDERED: Regadenoson 0.4 MG/5 ML SYRINGE ONE (09:44)
== END 2023-01-13 08:14 | disposition home or self-care (01) ==
LOC: NM 08:13
PROVIDERS: ATTEND Internal Medicine Cardiovascular Disease
DX: R07.9 Chest pain, unspecified (principal); I08.3 Combined rheumatic disorders of mitral, aortic and tricuspid valves
CPT/HCPCS: 78452; 93017; 93306; A9502; J2785

== ENCOUNTER 2023-01-18 07:56 | Outpatient (CLI) | payer BC ==
[2023-01-18] MEDS ORDERED: Iopamidol 370 76% 100 ML VIAL ONE (11:12)
== END 2023-01-18 07:57 | disposition home or self-care (01) ==
LOC: CT 07:56
PROVIDERS: ATTEND Internal Medicine Hematology & Oncology
DX: C7A.020 Malignant carcinoid tumor of the appendix (principal)
CPT/HCPCS: 74177

== ENCOUNTER 2023-08-15 13:15 | Emergency (ER) | payer BC ==
[2023-08-15 13:42] LABS: #Basophils Less than 0.03 10x3/uL (0.0-0.2); %Basophils 0.2 % (0.0-1.0); %Eosinophils 0.3 % (0.0-10.0); %Lymphocytes 10.5 % (21.0-51.0); %Monocytes 7.4 % (0.0-10.0); %Neutrophils 81.3 % (42.0-75.0); Hematocrit 45.4 % (36.0-47.0); Mean Corpuscular Hemoglobin 32.7 pg (27.0-31.0); Mean Corpuscular Volume 98.9 fL (78.0-98.0); Platelet Count 198 10x3/uL (130-400); Red Blood Cell (RBC) Count 4.59 mill/uL (4.20-5.40)
[2023-08-15] MEDS ORDERED: HYDROcodone/Acetaminophen 10/325 mg Tablet ONE ×2 (13:57→17:05)
[2023-08-15 14:06] LABS: Troponin I Less than 0.010 ng/mL (< 0.028)
[2023-08-15 14:11] LABS: ALT (SGPT) 27 U/L (8-55); AST (SGOT) 34 U/L (5-34); Albumin 3.5 g/dL (3.5-5.0); Alkaline Phosphatase 85 U/L (40-110); Anion Gap 10 mmol/L (10-20); BUN (Urea Nitrogen) 24 mg/dL (9.8-20.1); Bilirubin, Total 0.5 mg/dL (0.2-1.2); Calc. Creatinine Clearance 0 mL/min (70-130); Calcium 9.9 mg/dL (7.8-10.44); Carbon Dioxide 25 mmol/L (22-29); Chloride 108 mmol/L (98-107); Estimated GFR 87; Globulin 4.2 g/dL (2.4-3.5); Glucose 83 mg/dL (70-105); Lipase 89 U/L (8-78); Magnesium 1.9 mg/dL (1.6-2.6); Potassium 4.4 mmol/L (3.5-5.1); Protein, Total 7.7 g/dL (6.0-8.3); Sodium 139 mmol/L (136-145)
== END 2023-08-15 17:05 | disposition home or self-care (01) ==
LOC: ERS 13:15
DX: M54.50 Low back pain, unspecified (principal); G89.29 Other chronic pain; F11.23 Opioid dependence with withdrawal; I10 Essential (primary) hypertension; Z79.899 Other long term (current) drug therapy
CPT/HCPCS: 80053; 83690; 83735; 84484; 85025; 93005

== ENCOUNTER 2023-12-14 09:10 | Outpatient (CLI) | payer OTHER | END 2023-12-14 09:11 | disposition home or self-care (01) | LOC: MRI 09:10 | PROVIDERS: ATTEND Nurse Practitioner Family | DX: M47.26 Other spondylosis with radiculopathy, lumbar region (principal); K76.89 Other specified diseases of liver; Z98.890 Other specified postprocedural states | CPT/HCPCS: 72148 ==

== ENCOUNTER 2025-01-07 09:32 | Outpatient (CLI) | payer OTHER | END 2025-01-07 09:33 | disposition home or self-care (01) | LOC: SCSMRI 09:32 | PROVIDERS: ATTEND Family Medicine | DX: M54.17 Radiculopathy, lumbosacral region (principal); M48.061 Spinal stenosis, lumbar region without neurogenic claudication; M48.07 Spinal stenosis, lumbosacral region | CPT/HCPCS: 72158 ==